=== PATIENT | female | born 2000 | race Caucasian/White ===

== ENCOUNTER 2022-05-06 21:28 | Emergency (ER) | payer OTHER ==
[~2022-05-06] VITALS: Ht 154.9 cm; Wt 63.5 kg
--- NOTE | 2022-05-06 21:50 | NUR ---
DR YU SUB ORDERS FOR PT
--- NOTE | 2022-05-06 21:50 | NUR ---
DR YU ASSESSED PT IN WAITING ROOM
[2022-05-06] MEDS ORDERED: ACETAMINOPHEN 500 MG TABLET PO ONE (22:00)
[2022-05-06 22:51] LABS: BILIRUBIN,URINE NEGATIVE (NEGATIVE); CLARITY/URINE CLEAR (CLEAR); COLOR,URINE YELLOW (YELLOW); GLUCOSE,URINE NEGATIVE (NEGATIVE); KETONES,URINE NEGATIVE (NEGATIVE); LEUKOCYTE ESTERASE ,URINE NEGATIVE (NEGATIVE); NITRITE, URINE NEGATIVE (NEGATIVE); PROTEIN URINE NEGATIVE (NEGATIVE); UROBILINOGEN,URINE 0.2 (0.2-1.0)
[2022-05-06 22:56] LABS: BLOOD, URINE TRACE (NEGATIVE)
[2022-05-06 23:11] LABS: BACTERIA,URINE RARE /HPF (None Seen); RBC,URINE 0-3 /HPF (0-3); WBC,URINE NONE SEEN /HPF (0-3)
[2022-05-07] MEDS ORDERED: CEPH-548 PO (00:17)
[2022-05-07 02:56] VITALS: BP_SYST 121
[2022-05-07] MEDS ORDERED: ACETAMINOPHEN 500 MG TABLET ONE (03:31)
[2022-05-07 03:34] VITALS: BP_SYST 121
--- NOTE | 2022-05-07 03:35 | NUR ---
Ade fletcher in ED - 05/07/22 at 0608 by NICOL PT ASSESSED PT DR IN [facility]
--- NOTE | 2022-05-07 03:36 | NUR ---
Patient given written and verbal discharge instructions and verbalizes understanding. ER DR AIMEE CAMARA discussed with patient the results and treatment provided. Patient in stable condition. ID arm band removed. Rx of CEPHALEXIN given. Patient educated on pain management and to follow up with PMD. Pain Scale . Opportunity for questions provided and answered. Medication side effect fact sheet provided.
== END 2022-05-07 03:36 | disposition home or self-care (01) ==
LOC: SED 21:28
DX: R10.2 Pelvic and perineal pain (principal); R11.0 Nausea; Z79.899 Other long term (current) drug therapy
CPT/HCPCS: 76830-TC; 76857; 81000; 81025; 99284